=== PATIENT | female | born 1950 | race Caucasian/White ===

== ENCOUNTER 2018-05-06 08:18 | Outpatient (CLI) | payer MEDICARE, BC | END 2018-05-06 08:19 | disposition home or self-care (01) | LOC: BICMAMMO 08:18 | PROVIDERS: ATTEND Obstetrics & Gynecology | DX: Z12.31 Encounter for screening mammogram for malignant neoplasm of breast (principal); N63.10 Unspecified lump in the right breast, unspecified quadrant | CPT/HCPCS: 77063; 77067 ==

== ENCOUNTER 2018-05-27 12:54 | Outpatient (CLI) | payer MEDICARE, BC ==
--- NOTE | 2018-05-27 15:17 | ULT ---
RIGHT BREAST ULTRASOUND: Date: 05/27/18 HISTORY: Abnormal mammogram. FINDINGS: Correlation is made with mammograms of 05/06/18 and 05/27/18. Sonographic evaluation of the 2 o'clock position of the right breast about 4.0 cm from the nipple dem onstrates a well circumscribed hypoechoic 5 mm nonshadowing mass with echogenic hilum and flow consis tent with lymph node corresponding to the mammographic finding. IMPRESSION: BI-RADS Category 2 - Benign findings. Return to annual mammographic screening. POS: OFF
== END 2018-05-27 12:55 | disposition home or self-care (01) ==
LOC: BICMAMMO 12:54
PROVIDERS: ATTEND Obstetrics & Gynecology
DX: N63.10 Unspecified lump in the right breast, unspecified quadrant (principal); Z98.82 Breast implant status
CPT/HCPCS: 76642; 77065; G0279

== ENCOUNTER 2019-07-27 08:22 | Outpatient (CLI) | payer MEDICARE, BC ==
--- NOTE | 2019-07-27 09:12 | MMO ---
Bilateral MAMMO Bilat Screen [facility]DI+GIULIANO. CLINICAL HISTORY: Patient is 68 years old and is seen for screening. The patient has no family history of breast cancer. The patient has no personal history of cancer. The patient has a history of Implants in October, - EXPLANTATION AND REPLACED and Implants in 1998. VIEWS: The views performed were: bilateral craniocaudal; bilateral craniocaudal with tomosynthesis; bilateral mediolateral oblique; bilateral mediolateral oblique with tomosynthesis; and bilateral Implant displaced with tomosynthesis. FILMS COMPARED: The present examination has been compared to prior imaging studies performed at [facility] on 05/06/2018 and 05/27/2018. This study has been interpreted with the assistance of computer-aided detection. MAMMOGRAM FINDINGS: There are scattered fibroglandular densities. Finding 1: There is an equal density, lobular mass measuring 13 millimeters with circumscribed margins seen in the upper-inner region of the right breast. Finding 2: Bilateral intact breast implants, with stable appearance to the pericapsular regions of each implant. IMPRESSION: FINDING 1: MASS IN THE RIGHT BREAST REQUIRES ADDITIONAL EVALUATION. AN ULTRASOUND EXAM IS RECOMMENDED. THE RESULTS OF THIS EXAM WERE SENT TO THE PATIENT. ACR BI-RADS Category 0 - Incomplete: Need additional imaging evaluation. [facility] will notify the patient of the need for additional imaging services. MAMMOGRAPHY NOTE: 1. A negative mammogram report should not delay a biopsy if a dominant of clinically suspicious mass is present. 2. Approximately 10% to 15% of breast cancers are not detected by mammography. 3. Adenosis and dense breasts may obscure an underlying neoplasm. Reported by: WALT REESE MD Electonically Signed: [id number]
--- NOTE | 2019-07-27 10:21 | MMO ---
Right Breast MAMMO Unilat Diag DDI RT+GIULIANO. CLINICAL HISTORY: Patient is 68 years old and is seen for diagnostic exam. The patient has no family history of breast cancer. The patient has no personal history of cancer. The patient has a history of Implants in October, - EXPLANTATION AND REPLACED and Implants in 1998. VIEWS: The views performed were: right craniocaudal spot compression with tomosynthesis; right mediolateral oblique spot compression with tomosynthesis; right mediolateral; right mediolateral implant displaced; right Implant displaced implant displaced; and right Implant displaced spot compression with tomosynthesis. FILMS COMPARED: The present examination has been compared to prior imaging studies performed at [facility] on 05/27/2018 and 07/27/2019. This study has been interpreted with the assistance of computer-aided detection. MAMMOGRAM FINDINGS: There are scattered fibroglandular densities. There is an equal density, lobular mass measuring 13 millimeters with circumscribed margins seen in the right breast at 2 o'clock. Ultrasound demonstrates a solid mass. IMPRESSION: MASS IN THE RIGHT BREAST IS SUSPICIOUS. AN ULTRASOUND-GUIDED BREAST BIOPSY IS RECOMMENDED. BIOPSY HAS BEEN SCHEDULED. THE RESULTS OF THIS EXAM WERE SENT TO THE PATIENT. ACR BI-RADS Category 4 - Suspicious abnormality - biopsy should be considered MAMMOGRAPHY NOTE: 1. A negative mammogram report should not delay a biopsy if a dominant of clinically suspicious mass is present. 2. Approximately 10% to 15% of breast cancers are not detected by mammography. 3. Adenosis and dense breasts may obscure an underlying neoplasm. Reported by: WALT REESE MD Electonically Signed: [id number]
--- NOTE | 2019-07-27 10:23 | MMO ---
Right US Breast Limited Rt. CLINICAL HISTORY: Patient is 68 years old and is seen for . The patient has a history of Implants in October, - EXPLANTATION AND REPLACED and Implants in 1998. VIEWS: The views performed were: . FILMS COMPARED: The present examination has been compared to prior imaging studies performed at [facility] on 05/27/2018 and 07/27/2019. This study has been interpreted with the assistance of computer-aided detection. RIGHT BREAST ULTRASOUND FINDINGS: There is a hypoechoic oval solid mass with circumscribed margins measuring 17 millimeters seen in the right breast. The finding is seen at 2 o'clock. IMPRESSION: SOLID MASS IN THE RIGHT BREAST IS SUSPICIOUS. AN ULTRASOUND-GUIDED BREAST BIOPSY IS RECOMMENDED. BIOPSY HAS BEEN SCHEDULED. THE RESULTS OF THIS EXAM WERE SENT TO THE PATIENT. ACR BI-RADS Category 4 - Suspicious abnormality - biopsy should be considered MAMMOGRAPHY NOTE: 1. A negative mammogram report should not delay a biopsy if a dominant of clinically suspicious mass is present. 2. Approximately 10% to 15% of breast cancers are not detected by mammography. 3. Adenosis and dense breasts may obscure an underlying neoplasm. Reported by: WALT REESE MD Electonically Signed: [id number]
--- NOTE | 2019-07-27 10:25 | MMO ---
Left US Breast Limited Lt. CLINICAL HISTORY: Patient is 68 years old and is seen for . The patient has a history of Implants in October, - EXPLANTATION AND REPLACED and Implants in 1998. VIEWS: The views performed were: . FILMS COMPARED: The present examination has been compared to prior imaging studies performed at [facility] on 05/27/2018 and 07/27/2019. This study has been interpreted with the assistance of computer-aided detection. LEFT BREAST ULTRASOUND FINDINGS: On ultrasound, no suspicious findings are identified. Limited sonographic interrogation was performed at the inner lower aspect of the left breast implant, without mass or other abnormality identified. IMPRESSION: THERE ARE NO SONOGRAPHIC FINDINGS TO SUGGEST MALIGNANCY. THE RESULTS OF THIS EXAM WERE SENT TO THE PATIENT. ACR BI-RADS Category 1 - Negative MAMMOGRAPHY NOTE: 1. A negative mammogram report should not delay a biopsy if a dominant of clinically suspicious mass is present. 2. Approximately 10% to 15% of breast cancers are not detected by mammography. 3. Adenosis and dense breasts may obscure an underlying neoplasm. Reported by: WALT REESE MD Electonically Signed: [id number]
--- NOTE | 2019-07-27 11:22 | MMO ---
Right Breast MAMMO Unilat Diag DDI RT. CLINICAL HISTORY: Patient is 68 years old and is seen for diagnostic exam. The patient has no family history of breast cancer. The patient has no personal history of cancer. The patient has a history of right Ultrasound Guided Core Biopsy in July,, Implants in October, - EXPLANTATION AND REPLACED and Implants in 1998. VIEWS: The views performed were: right craniocaudal implant displaced and right mediolateral oblique implant displaced. FILMS COMPARED: The present examination has been compared to a prior imaging study performed at [facility] on 07/27/2019. This study has been interpreted with the assistance of computer-aided detection. MAMMOGRAM FINDINGS: There are scattered fibroglandular densities. There is a new biopsy clip seen in the right breast. This is slightly medial to the biopsied mass. IMPRESSION: NEW BIOPSY CLIP IN THE RIGHT BREAST IS CONFIRMED UTILIZING POST PROCEDURE MAMMOGRAM. THE RESULTS OF THIS EXAM WERE SENT TO THE PATIENT. MAMMOGRAPHY NOTE: 1. A negative mammogram report should not delay a biopsy if a dominant of clinically suspicious mass is present. 2. Approximately 10% to 15% of breast cancers are not detected by mammography. 3. Adenosis and dense breasts may obscure an underlying neoplasm. Reported by: WALT REESE MD Electonically Signed: [id number]
--- NOTE | 2019-07-27 12:15 | ULT ---
ULTRASOUND GUIDED RIGHT BREAST BIOPSY: Date: 07/27/2019 PROVIDED CLINICAL HISTORY: Right breast mass. FINDINGS: Informed consent was obtained from the patient. Sonographic interrogation of the right breast was per formed, localizing the area of sonographic concern at the 2 o'clock position seen on ultrasound perfo rmed earlier same date. The skin overlying this region was prepped and draped in the usual sterile ma nner. The soft tissues were infiltrated with 1% buffered lidocaine. A small skin incision was made. R eal-time ultrasound guidance was utilized to obtain four core samples of the mass. Subsequently, real -time sonographic guidance was utilized to deploy a biopsy clip. [place] were removed and hemostasis achieved. No immediate complications. Post biopsy mammograms demonstrate clip deployment slightly med ial to the mass. IMPRESSION: Technically successful ultrasound guided right breast biopsy. Please correlate with histology results to follow. POS: MARTINEZ
== END 2019-07-27 08:23 | disposition home or self-care (01) ==
LOC: BICMAMMO 08:22
PROVIDERS: ATTEND Obstetrics & Gynecology
DX: N63.10 Unspecified lump in the right breast, unspecified quadrant (principal)
CPT/HCPCS: 19083; 76642 ×2; 77063; 77065 ×2; 77067; G0279; 88305; 88341; 88342

== ENCOUNTER 2019-08-11 16:47 | Outpatient (CLI) | payer MEDICARE, BC ==
[2019-08-11 17:12] LABS: #Basophils 0.1 thou/uL (0.0-0.2); #Eosinphils 0.2 thou/uL (0.0-0.7); #Monocytes 0.5 thou/uL (0.11-0.59); #Neutrophils 5.1 thou/uL (1.40-6.50); %Basophils 0.8 % (0.0-1.0); %Monocytes 6.5 % (0.0-10.0); %Neutrophils 65.7 % (42.0-75.0); Hemoglobin 13.7 g/dL (12.0-16.0); Mean Corpuscular Hemoglobin 32.7 pg (27.0-31.0); Mean Corpuscular Volume 93.4 fL (78.0-98.0); Mean Platelet Volume 7.6 fL (7.4-10.4); Platelet Count 241 thou/uL (130-400); RBC Distribution Width 11.5 % (11.5-14.5); Red Blood Cell (RBC) Count 4.21 mill/uL (4.20-5.40); White Blood Cell (WBC) Count 7.8 thou/uL (4.8-10.8)
[2019-08-11 17:29] LABS: Anion Gap 13 mmol/L (10-20); BUN (Urea Nitrogen) 20 mg/dL (9.8-20.1); Calc. Creatinine Clearance 0 mL/min (70-130); Calcium 9.7 mg/dL (7.8-10.44); Carbon Dioxide 26 mmol/L (23-31); Chloride 104 mmol/L (98-107); Estimated GFR-MDRD 64; Glucose 99 mg/dL (80-115); Potassium 4.3 mmol/L (3.5-5.1); Sodium 139 mmol/L (136-145)
--- NOTE | 2019-08-12 15:54 | EKG ---
Test Reason : Blood Pressure : / mmHG Vent. Rate : 076 BPM Atrial Rate : 076 BPM P-R Int : 136 ms QRS Dur : 096 ms QT Int : 398 ms P-R-T Axes : 056 029 020 degrees QTc Int : 447 ms Normal sinus rhythm Normal ECG When compared with ECG of 04-NOV-1996 12:58, No significant change was found Confirmed by BRICE PACE, DR. Nevarez ([id number]) on 08/12/2019 3:54:23 PM Referred By: ESTRELLA Confirmed By:DR. Geri NARVAEZ MD
== END 2019-08-11 16:48 | disposition home or self-care (01) ==
LOC: LABBT 16:47
PROVIDERS: ATTEND Surgery
DX: Z01.818 Encounter for other preprocedural examination (principal); C50.919 Malignant neoplasm of unspecified site of unspecified female breast
CPT/HCPCS: 80048; 85025; 93005; 93010

== ENCOUNTER 2019-08-18 06:59 | Day surgery (SDC) | payer MEDICARE, BC ==
[2019-08-11 17:08] VITALS: BMI 29.9
--- NOTE | 2019-08-18 09:07 | NM ---
Exam: Nuclear medicine lymphoscintigraphy HISTORY: Right breast cancer. [place] lymph node evaluation line technique: Patient administered 0.4 40 mCi of technetium 99m filter is sulfur colloid subcutaneously. 4 separate aliquots were placed at the 12:00, 3:00, 6:00 and 9:00 position. FINDINGS: There is uptake in a right axillary lymph node. Skin is marked IMPRESSION: Right axillary sentinel lymph node
[2019-08-18] MEDS ORDERED: Fentanyl 100 MCG/2 ML VIAL ONE ×4 (10:01→12:28)
[2019-08-18] MEDS ORDERED: Lidocaine 1% w/Epinephrine 1:100K 20 ML VIAL ONE (10:13)
[2019-08-18] MEDS ORDERED: Bupivacaine 0.25% HCL 30 ML VIAL ONE (10:13)
[2019-08-18] MEDS ORDERED: Methylene Blue 50 MG/10 ML AMPUL ONE (10:13)
[2019-08-18] MEDS ORDERED: Lidocaine 1% PF 5 ML VIAL ONE (10:17)
[2019-08-18] MEDS ORDERED: Succinylcholine Chloride 20 MG/ML 10 ml SYRINGE FS ONE (10:17)
[2019-08-18] MEDS ORDERED: Rocuronium Bromide 10 MG/ML (10ML VIAL) ONE (10:17)
[2019-08-18] MEDS ORDERED: PROPOFOL 200 MG/20 ML VIAL ONE (10:17)
[2019-08-18] MEDS ORDERED: Ondansetron PF 4 MG/2 ML Vial ONE (10:17)
[2019-08-18] MEDS ORDERED: Dexamethasone 20 MG/5 ML VIAL ONE (10:17)
[2019-08-18] MEDS ORDERED: Ketorolac Tromethamine 30 MG/ML VIAL ONE (10:17)
[2019-08-18] MEDS ORDERED: hydrALAZINE 20 MG/ML VIAL ONE (12:34)
[2019-08-18] MEDS ORDERED: HYDROmorphone 0.5 MG/0.5 ML SYRINGE ONE ×3 (12:47→13:11)
--- NOTE | 2019-08-18 13:37 | MMO ---
RIGHT BREAST NEEDLE LOCALIZATION WITH MAMMOGRAPHIC GUIDANCE SURGICAL SPECIMEN: HISTORY: Right breast cancer. COMPARISON: 07/27/2019. FINDINGS: Successful right breast needle localization with mammographic guidance. 7.5 cm [place] needle and wire are adjacent to a biopsy clip and a well-circumscribed mass. TECHNIQUE: Consent was obtained to perform a right breast needle localization for cervical excision. The right breast was compressed in the lateral medial progression. The clip was identified. The skin was prep ped and draped in a sterile fashion. 1% Lidocaine, buffered with sodium bicarbonate, was used for lo edie anesthesia. Under mammographic guidance, a 7.5 cm [place] needle and wire were advanced such that the needle and wire were adjacent to the clip. Imaging was confirmed in both the CC and mediolateral projection. Post wire deployment image was obtained. The patient tolerated the procedure well. No immediate postprocedure complication. IMPRESSION: Successful right breast needle localization with mammographic guidance. SURGICAL SPECIMEN: The biopsy clip and mass are noted. Findings were conveyed to Dr. Richardson on 08/18/2019 at 11:41 a.m. CODE CR POS: OFF
[2019-08-18] MEDS ORDERED: Acetaminophen 500 MG TAB ONE (13:56)
[2019-08-18] MEDS ORDERED: traMADol HCl 50 MG TAB ONE (13:56)
--- NOTE | 2019-08-19 08:02 | OP ---
DATE OF PROCEDURE: 08/18/2019 PREOPERATIVE DIAGNOSIS: Right breast cancer. POSTOPERATIVE DIAGNOSIS: Right breast cancer. PROCEDURES PERFORMED: 1. Right partial mastectomy after needle localization. 2. Right deep axillary node biopsy (sentinel node protocol). ANESTHESIA: General. ESTIMATED BLOOD LOSS: Minimal. COMPLICATIONS: None. SPECIMENS: Right breast mass marked with 2 short superior, 1 long lateral, right additional medial margin with stitch on new margin, right sentinel node. DESCRIPTION OF PROCEDURE: The patient was taken to the operating room and laid supine on the operating room table. After general anesthetic was obtained, the patient had undergone preop lymphoscintigraphy and placement of needle localization wire. 5 mL of methylene blue dye infiltrated under the right nipple and massaged for 10 minutes. Right chest, neck, arm, axilla were all prepped and draped in a sterile fashion. A curved incision was made along the inferior hairline of the right axilla. Neoprobe was used to find an area of increased uptake. There was an uptake into the mid 400s. This area was removed, it had high counts on the back table. The background counts dropped to near zero. This wound was irrigated and closed using 3-0 Vicryl, 4-0 Monocryl, and Dermabond. Next, incision was made along the areolar edge of the right nipple. Flaps were raised superomedially, inferolaterally around the end of the needle localization wire. The specimen was sent to x-ray, which revealed the clip from the biopsy to be in the specimen. Because the palpable lump within the specimen approached the medial superior edge, an additional margin medial tissue was obtained. The wound was irrigated and closed using 3-0 Vicryl, 4-0 Monocryl, and Dermabond. The patient was sent to Recovery in stable condition. All instrument counts, needle counts, and lap counts were correct. Job ID: [id number]
== END 2019-08-18 15:15 | disposition home or self-care (01) ==
LOC: SDC 06:59
PROVIDERS: ATTEND Surgery
PROC: 0HBT0ZZ Excision of Right Breast, Open Approach (ICD-10-PCS; principal; 2019-08-18)
PROC: 07B50ZX Excision of Right Axillary Lymphatic, Open Approach, Diagnostic (ICD-10-PCS; 2019-08-18)
DX: C50.211 Malignant neoplasm of upper-inner quadrant of right female breast (principal); I10 Essential (primary) hypertension; E78.5 Hyperlipidemia, unspecified; J30.2 Other seasonal allergic rhinitis; Z17.0 Estrogen receptor positive status [ER+]; Z79.899 Other long term (current) drug therapy; Z88.2 Allergy status to sulfonamides; Z88.5 Allergy status to narcotic agent; Z91.048 Other nonmedicinal substance allergy status
CPT/HCPCS: 19281; 19301; 38525; 38900; 76098; 78195; A9541; Q9968; 88307; 88342; J0360; J0690; J1100; J1170; J1885; J2001; J2405; J2704; J3010; S0020

== ENCOUNTER 2019-09-06 07:16 | Day surgery (SDC) | payer MEDICARE, BC ==
[2019-09-05 11:35] VITALS: BMI 29.0
[2019-09-06 08:46] LABS: Anion Gap 18 mmol/L (10-20); BUN (Urea Nitrogen) 19 mg/dL (9.8-20.1); Calc. Creatinine Clearance 94 mL/min (70-130); Calcium 9.7 mg/dL (7.8-10.44); Carbon Dioxide 20 mmol/L (23-31); Chloride 105 mmol/L (98-107); Estimated GFR-MDRD 80; Glucose 110 mg/dL (80-115); Potassium 5.5 mmol/L (3.5-5.1); Sodium 137 mmol/L (136-145)
[2019-09-06] MEDS ORDERED: Bupivacaine 0.25% HCL 30 ML VIAL ONE (09:29)
[2019-09-06] MEDS ORDERED: Lidocaine 1% w/Epinephrine 1:100K 20 ML VIAL ONE (09:29)
[2019-09-06] MEDS ORDERED: Fentanyl 100 MCG/2 ML VIAL ONE ×3 (09:36→11:26)
--- NOTE | 2019-09-06 10:48 | OP ---
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 PROCEDURE PERFORMED: Re-excision lumpectomy including medial, superior, posterior margins. ANESTHESIA: General. ESTIMATED BLOOD LOSS: Minimal. COMPLICATIONS: None. SPECIMENS: Superomedially, medial and posterior margins marked with stitch on new margin, sent to Path for final diagnosis. DESCRIPTION OF PROCEDURE: The patient was taken to the operating room and laid supine on the operating room table. After general anesthetic was obtained, the right breast was prepped and draped in a sterile fashion. Preincision was opened. New margins were performed superomedially and posteriorly. The posterior margin involved the capsule covering the implant. The capsule was then closed using Vicryl suture. Sutures were placed on the new margin, on each margin, and sent separately to Path for final diagnosis. The wound was irrigated. Local anesthetic was applied. The wound was closed using 3-0 Vicryl, 4-0 Monocryl, and Dermabond. The patient was sent to Recovery in stable condition. All instrument counts, needle counts, and lap counts were correct. Job ID: [id number]
[2019-09-06] MEDS ORDERED: HYDROmorphone 0.5 MG/0.5 ML SYRINGE ONE (11:14)
[2019-09-06] MEDS ORDERED: Rocuronium Bromide 10 MG/ML (10ML VIAL) ONE (12:36)
[2019-09-06] MEDS ORDERED: Ondansetron PF 4 MG/2 ML Vial ONE (12:36)
[2019-09-06] MEDS ORDERED: Ketorolac Tromethamine 30 MG/ML VIAL ONE (12:36)
[2019-09-06] MEDS ORDERED: PROPOFOL 200 MG/20 ML VIAL ONE (12:36)
[2019-09-06] MEDS ORDERED: Dexamethasone 20 MG/5 ML VIAL ONE (12:36)
[2019-09-06] MEDS ORDERED: Succinylcholine Chloride 20 MG/ML 10 ml SYRINGE FS ONE (12:36)
[2019-09-06] MEDS ORDERED: Lidocaine 1% PF 5 ML VIAL ONE (12:36)
[2019-09-06] MEDS ORDERED: Bupivacaine HCl 0.5%/Epinephrine 1:200,000/PF 30 ml Vial ONE (12:37)
--- NOTE | 2019-09-07 14:36 | EKG ---
Test Reason : PREOP Blood Pressure : / mmHG Vent. Rate : 069 BPM Atrial Rate : 069 BPM P-R Int : 134 ms QRS Dur : 098 ms QT Int : 412 ms P-R-T Axes : 060 052 043 degrees QTc Int : 441 ms Normal sinus rhythm Normal ECG Confirmed by HOOD WYNNE ([id number]) on 09/07/2019 2:36:39 PM Referred By: ESTRELLA Confirmed By:HOOD WYNNE
== END 2019-09-06 14:13 | disposition home or self-care (01) ==
LOC: SDC 07:16
PROVIDERS: ATTEND Surgery
PROC: 0HBT0ZZ Excision of Right Breast, Open Approach (ICD-10-PCS; principal; 2019-09-06)
DX: C50.911 Malignant neoplasm of unspecified site of right female breast (principal); Z17.0 Estrogen receptor positive status [ER+]; Z79.899 Other long term (current) drug therapy; Z88.2 Allergy status to sulfonamides; Z88.5 Allergy status to narcotic agent; Z91.048 Other nonmedicinal substance allergy status
CPT/HCPCS: 19301; 80048; 93005; J0670; J0690; J1170; J1100; J1885; J2001; J2405; J2704; J3010; 36415; 88307; 93010; S0020

== ENCOUNTER 2020-03-15 10:25 | Outpatient (CLI) | payer MEDICARE, BC ==
--- NOTE | 2020-03-15 11:12 | BD ---
EXAM: DEXA bone density examination HISTORY: 69-year-old postmenopausal female for screening COMPARISON: None FINDINGS: L1--bone mineral density 1.147 g/sq cm; T score 1.4 L2--bone mineral density 1.086 g/sq cm; T score 0.5 L3--bone mineral density 1.169 g/sq cm; T score 0.8 L4--bone mineral density 1.375 g/sq cm; T score 2.9 Total L1-L4--bone mineral density 1.201 g/sq cm; T score 1.4 Left femoral neck--bone mineral density0.736; T score -1.0 Total proximal left femur--bone mineral density 0.855; T score -0.7 IMPRESSION: Normal bone density.
== END 2020-03-15 10:26 | disposition home or self-care (01) ==
LOC: BICMAMMO 10:25
PROVIDERS: ATTEND Internal Medicine Hematology & Oncology
DX: Z13.820 Encounter for screening for osteoporosis (principal); Z78.0 Asymptomatic menopausal state
CPT/HCPCS: 77080

== ENCOUNTER 2020-08-01 09:30 | Outpatient (CLI) | payer MEDICARE, BC | END 2020-08-01 09:31 | disposition home or self-care (01) | LOC: BICMAMMO 09:30 | PROVIDERS: ATTEND Internal Medicine Hematology & Oncology | DX: C50.211 Malignant neoplasm of upper-inner quadrant of right female breast (principal); N64.59 Other signs and symptoms in breast | CPT/HCPCS: 76642; 77066; G0279 ==

== ENCOUNTER 2022-08-08 10:09 | Outpatient (CLI) | payer MEDICARE, BC | END 2022-08-08 10:10 | disposition home or self-care (01) | LOC: BICMAMMO 10:09 | PROVIDERS: ATTEND Surgery | DX: C50.919 Malignant neoplasm of unspecified site of unspecified female breast (principal) | CPT/HCPCS: 77066; G0279 ==